=== PATIENT | female | born 1960 | race Caucasian/White ===

== ENCOUNTER 2017-03-07 13:25 | Inpatient (IN) | payer SELFPAY ==
[~2017-03-07] VITALS: Ht 167.6 cm; Wt 82.6 kg
[~2017-03-07 13:25] MED LIST: AMOX-367 PO; ASPI-650 PO; CARV6.2512 PO; LISI-167 PO; SIMV40TA PO; TIOT18CA INH
[2017-03-07] MEDS ORDERED: NALOXONE 0.4 MG/ML, 1ML ONE (13:37)
[2017-03-07 13:53] LABS: DIFF TOTAL CELLS COUNTED 100 CELL DIFF
[2017-03-07] MEDS ORDERED: PLEASE ENTER HEIGHT AND WEIGHT MC SCH (14:00)
[2017-03-07] MEDS ORDERED: NALOXONE 0.4 MG/ML, 1ML IVPush ONE (14:00)
[2017-03-07] MEDS ORDERED: SODIUM CHLORIDE FLUSH 10ML SYR IVF ONE ×2 (14:00→15:00)
[2017-03-07] MEDS ORDERED: VECURONIUM 50 MG in SODIUM CHLORIDE 0.9% 250 ML IV PRN (14:27)
[2017-03-07] MEDS ORDERED: PROPOFOL 100 ML IV PRN ×2 (14:27→18:43)
[2017-03-07] MEDS ORDERED: ETOMIDATE 20 MG/10 ML IV ONE (14:30)
[2017-03-07] MEDS ORDERED: SUCCINYLCHOLINE 20 MG/ML, 10ML IVPush ONE (14:30)
[2017-03-07] MEDS ORDERED: VECURONIUM 10 MG IVPush ONE (14:30)
[2017-03-07 14:33] LABS: VERIFY COUNTS? YES
[2017-03-07 14:43] LABS: BLOOD UREA NITROGEN 78 mg/dL (7-18)
[2017-03-07] MEDS ORDERED: SODIUM CHLORIDE 0.9% 1,000 ML IV ONE (14:49)
[2017-03-07] MEDS ORDERED: SODIUM CHLORIDE 0.9% 1,000ML IVBOLUS ONE ×2 (15:00→15:30)
[2017-03-07] MEDS ORDERED: PIPERACILLIN/TAZO 3.375 GM in SODIUM CHLORIDE 0.9% 50 ML IVPB ONE (15:00)
[2017-03-07 15:14] LABS: ABG COLLECTION SITE LEFT BRACHIAL
[2017-03-07 15:30] LABS: ACETAMINOPHEN < 2 mcg/mL (10-30); ASPARTATE AMINO TRANSFERASE 13796 U/L (15-37)
[2017-03-07 15:31] LABS: IS PT STATUS REG ER OR PRE ER? YES
[2017-03-07 15:34] LABS: DAU SCREEN DISCLAIMER
[2017-03-07] MEDS ORDERED: PIPERACILLIN/TAZO/PMX 3.375GM 50 ML ONE (15:35)
[2017-03-07] MEDS ORDERED: ASPIRIN 81 MG TABLET CHEW ONE (15:57)
[2017-03-07] MEDS ORDERED: POLYETHYLENE GLYCOL 17 GM PACKET PO PRN (16:00)
[2017-03-07] MEDS ORDERED: DOCUSATE 100 MG CAPSULE PO PRN (16:00)
[2017-03-07] MEDS ORDERED: BISACODYL 10 MG SUPP PR PRN (16:00)
[2017-03-07] MEDS ORDERED: VANCOMYCIN PER PHARMACY MC PRN (16:00)
[2017-03-07] MEDS ORDERED: SODIUM BICARBONATE 1 MEQ/ML, 50ML VIAL IVPush STA (17:00)
[2017-03-07] MEDS ORDERED: ASPIRIN 300 MG SUPP PR ONE (17:00)
[2017-03-07] MEDS ORDERED: ETOMIDATE 40 MG/20 ML ONE (17:20)
[2017-03-07] MEDS ORDERED: SUCCINYLCHOLINE 20 MG/ML, 10ML ONE (17:20)
[2017-03-07] MEDS ORDERED: VECURONIUM 10 MG ONE (17:20)
[2017-03-07] MEDS ORDERED: SODIUM BICARB 8.4%, 50ML SYRINGE ONE ×2 (17:25→17:32)
[2017-03-07] MEDS ORDERED: PHARMACOKINETIC MONITORING MC PRN (17:30)
[2017-03-07] MEDS ORDERED: VANCOMYCIN 1,500 MG in SODIUM CHLORIDE 0.9% 250 ML IV ONE (17:30)
[2017-03-07] MEDS ORDERED: PHARMACOKINETIC CONSULTATION MC ONE (17:30)
[2017-03-07] MEDS ORDERED: NOREPINEPHRINE 4 MG in SODIUM CHLORIDE 0.9% 246 ML IV PRN (17:30)
[2017-03-07] MEDS: SODIUM BICARBONATE 8.4% 150 MEQ in DEXTROSE 5% 1,000 ML IV SCH (18:08)
[2017-03-07] MEDS ORDERED: PHENYLEPHRINE 20 MG in SODIUM CHLORIDE 0.9% 248 ML IV PRN (18:30)
[2017-03-07] MEDS ORDERED: VASOPRESSIN 100 UNIT in SODIUM CHLORIDE 0.9% 495 ML IV PRN (18:30)
[2017-03-07] MEDS: NOREPINEPHRINE 8 MG in SODIUM CHLORIDE 0.9% 246 ML IV PRN (18:34)
[2017-03-07] MEDS ORDERED: LIDOCAINE-MPF 1%, 2ML ENDO PRN (19:00)
[2017-03-07 19:59] LABS: DIFF TOTAL CELLS COUNTED 100 CELL DIFF
[2017-03-07 20:04] LABS: IS PT STATUS REG ER OR PRE ER? NO
[2017-03-07] MEDS: MAGNESIUM SULFATE 1 GM, THIAMINE 100 MG, FOLIC ACID 1 MG, MVI ADULT 10 ML in SODIUM CHL... IV SCH ×2 (20:12→20:37)
[2017-03-07 20:44] LABS: VERIFY COUNTS? YES
[2017-03-07] MEDS: PANTOPROZOLE 40MG TABLET PO SCH (20:47)
[2017-03-07] MEDS ORDERED: PIPERACILLIN/TAZO 3.375 GM in SODIUM CHLORIDE 0.9% 50 ML IV SCH (21:00)
[2017-03-07 21:13] LABS: PROTIME 18.7 Seconds (9.6-11.5)
[2017-03-07] MEDS ORDERED: PIPERACILLIN/TAZO/PMX 3.375GM 50 ML IV SCH (21:30)
[2017-03-08] MEDS: SODIUM BICARBONATE 8.4% 150 MEQ in DEXTROSE 5% 1,000 ML IV SCH ×3 (01:33→18:44)
[2017-03-08] MEDS: PIPERACILLIN/TAZO/PMX 3.375GM 50 ML IV SCH ×2 (03:02→09:38)
[2017-03-08 03:27] LABS: ABG COLLECTION SITE LEFT BRACHIAL
[2017-03-08 03:40] LABS: DIFF TOTAL CELLS COUNTED 100 CELL DIFF
[2017-03-08 03:46] LABS: VERIFY COUNTS? YES
[2017-03-08 03:57] LABS: IS PT STATUS REG ER OR PRE ER? NO
[2017-03-08 04:03] LABS: BLOOD UREA NITROGEN 93 mg/dL (7-18)
[2017-03-08 04:23] LABS: ASPARTATE AMINO TRANSFERASE 7457 U/L (15-37)
[2017-03-08 05:00] VITALS: BP 107/76
[2017-03-08] MEDS: PANTOPROZOLE 40MG TABLET PO SCH (11:07)
[2017-03-08] MEDS: NOREPINEPHRINE 8 MG in SODIUM CHLORIDE 0.9% 246 ML IV PRN ×2 (16:41→22:35)
[2017-03-08] MEDS: PIPERACILLIN/TAZO/PMX 2.25GM 50 ML IVPB SCH ×2 (16:43→21:37)
[2017-03-08] MEDS ORDERED: PANTOPRAZOLE 40 MG IV IVPush SCH (21:00)
[2017-03-08] MEDS ORDERED: PIPERACILLIN/TAZO(ZOSYN) 2.25 GM in NS 50 ML IVPB SCH (21:00)
[2017-03-08] MEDS ORDERED: PIPERACILLIN/TAZO/PMX 2.25GM 50 ML IVPB SCH (21:00)
[2017-03-08] MEDS ORDERED: DOPAMINE/D5W PMX 250 ML IV PRN (21:00)
[2017-03-09] MEDS: PHENYLEPHRINE 40 MG in SODIUM CHLORIDE 0.9% 246 ML IV PRN ×2 (02:15→05:43)
[2017-03-09] MEDS: NOREPINEPHRINE 8 MG in SODIUM CHLORIDE 0.9% 246 ML IV PRN ×2 (02:16→06:19)
[2017-03-09] MEDS: SODIUM BICARBONATE 8.4% 150 MEQ in DEXTROSE 5% 1,000 ML IV SCH (02:26)
[2017-03-09 04:00] VITALS: BP 102/36
[2017-03-09] MEDS: PIPERACILLIN/TAZO/PMX 2.25GM 50 ML IVPB SCH (04:19)
[2017-03-09] MEDS ORDERED: SODIUM CHLORIDE 0.9% 1,000ML IVBOLUS ONE ×3 (04:30→06:00)
[2017-03-09 04:50] LABS: ABG COLLECTION SITE ARTERIAL LINE
[2017-03-09 05:29] LABS: IS PT STATUS REG ER OR PRE ER? NO
[2017-03-09 05:51] LABS: BLOOD UREA NITROGEN 91 mg/dL (7-18)
[2017-03-09 05:59] LABS: DIFF TOTAL CELLS COUNTED 100 CELL DIFF
[2017-03-09 06:08] LABS: VERIFY COUNTS? YES
[2017-03-09 06:09] LABS: ANISOCYTOSIS 1+; POLYCHROMASIA 1+
[2017-03-09 06:37] LABS: ASPARTATE AMINO TRANSFERASE 12236 U/L (15-37)
[2017-03-09] MEDS ORDERED: VANCOMYCIN 1,500 MG in SODIUM CHLORIDE 0.9% 250 ML IV ONE (08:00)
== END 2017-03-09 07:04 | disposition expired | DRG 871 ==
LOC: ED 13:44 → EDIP 15:18 → CCU 16:57
PROVIDERS: ADMIT Hospitalist; ATTEND Hospitalist
PROC: 5A1945Z Respiratory Ventilation, 24-96 Consecutive Hours (ICD-10-PCS; principal; 2017-03-07)
PROC: 0BH17EZ Insertion of Endotracheal Airway into Trachea, Via Natural or Artificial Opening (ICD-10-PCS; 2017-03-07)
PROC: 0T9B70Z Drainage of Bladder with Drainage Device, Via Natural or Artificial Opening (ICD-10-PCS; 2017-03-07)
PROC: 03HY32Z Insertion of Monitoring Device into Upper Artery, Percutaneous Approach (ICD-10-PCS; 2017-03-08)
PROC: 05HM33Z Insertion of Infusion Device into Right Internal Jugular Vein, Percutaneous Approach (ICD-10-PCS; 2017-03-09)
DX: A41.9 Sepsis, unspecified organism (principal); I21.3 ST elevation (STEMI) myocardial infarction of unspecified site; K72.00 Acute and subacute hepatic failure without coma; I63.40 Cerebral infarction due to embolism of unspecified cerebral artery; N17.0 Acute kidney failure with tubular necrosis; J96.01 Acute respiratory failure with hypoxia; E87.2 Acidosis; K92.2 Gastrointestinal hemorrhage, unspecified; D68.9 Coagulation defect, unspecified; M62.82 Rhabdomyolysis; E87.4 Mixed disorder of acid-base balance; I42.9 Cardiomyopathy, unspecified; I50.22 Chronic systolic (congestive) heart failure; J44.1 Chronic obstructive pulmonary disease with (acute) exacerbation; F17.210 Nicotine dependence, cigarettes, uncomplicated; F15.10 Other stimulant abuse, uncomplicated; R57.0 Cardiogenic shock; E87.5 Hyperkalemia; E86.1 Hypovolemia; D64.9 Anemia, unspecified; R65.20 Severe sepsis without septic shock
CPT/HCPCS: 31500; 36415; 36600; 70450; 70551; 71010; 80047; 80053; 80061; 80202; 80307; 80329; 81001; 82140; 82436; 82533; 82550; 82570; 82803; 82805; 83605; 83735; 84100; 84133; 84300; 84443; 84478; 84484; 85025; 85049; 85379; 85384; 85610; 85730; 87040; 87070; 87077; 87081; 87150; 87184; 87186; 87205; 93005; 93306; 94002; 94003; 96361; 96374; J1265; J2310; J2543; J2704; J3370; J3411; J3475; J7070; C9113; G0480; J0330; J2370; J7030; J7040; J7050